=== PATIENT | female | born 1940 | race Caucasian/White ===

== ENCOUNTER 2016-11-26 08:54 | Inpatient (IN) ==
--- NOTE | 2016-11-26 09:46 | Emergency Department Note ---
Carmen Adam Brittany, am scribing for, and in the presence of, Santosh Ricci MD 09:32. Keiry Adam Phillip K, MD, personally performed the services described in this documentation, ascribed by Adrianne Morales in my presence, and it is both accurate and complete 946 . Arrival - Arrival Chief Complaint: Altered Mental Status Stated Complaint: TRANSFER FROM [facility] FOR CHANGE IN MENTAL ST ED Nursing Triage Note: TRANSFER FROM [facility] FOR ALTERED MENTAL STATUS, PT IS DIFFERENT THAN SATURDAY ACCORDING TO SON Mode of Arrival: Stretcher Limitations: No Limitations Source: Family - History of Present Illness HPI Narrative: This is a 76 y/o white female, who presents to the Ed for further evaluation of AMS. Her son states pt was being seen at [facility] 12 days ago and had an EEG which showed seizure activity. At this time, pt's Keppra was increased to TID. Her son states pt had the EEG secondary to the AMS. Her son states he noticed her right arm has started to "twitch" 11/22. No other complaints/pain in the ED at this time. Pt has a PMHx of CHF, CAD, HTN, OR, dyslipidemia, seizures, glioblastoma to the left side of the brain, COPD, GERD, and back/neck problems. Pt has had a cardiac cath x 1 stent, eye surgery, appendectomy, back fusion and spinal surgery. Pt has a family medical Hx of cancer, diabetes, HTN, and stroke. Patient had labs done at [facility] out this morning that were normal. Patient was sent to rehab Saturday and admitted by Dr. Garcia waiting for further instruction to set up radiation therapy. She is not a candidate for surgery. According to the neurosurgeon and family members they only gave her 6 months to live. This could be partial complex seizures that she is having however I have not noted any grand mal seizure activity. Patient will talk in the ED but would not follow commands. Dr. Garcia states that this is a change from her exam on Saturday when she was talking normally. Onset (ago): day(s) (Started 12 days ago) Consistency: constant Severity: moderate Allergies/Adverse Reactions: Allergies Allergy/AdvReac Type Severity Reaction Status Date / Time sumatriptan [From Imitrex] Allergy Unknown/Unable Verified 10/03/15 16:08 to obtain Home Medications: Home Medications Medication Instructions Recorded Confirmed Type Cholecalciferol (Vitamin D3) 1,000 units PO DAILY 03/23/16 11/26/16 History [Vitamin D3] Simvastatin 40 mg PO BEDTIME 03/23/16 11/26/16 History Albuterol/Ipratropium Neb [Duoneb] 1 inhaler INH Q6HR 11/21/16 11/26/16 History Dexamethasone [Dexamethasone Tab] 1 tablet PO Q8HR 11/21/16 11/26/16 History HYDROcodone/ACETAMIN 5-325 [[place] 1 tablet PO Q6HR PRN 11/21/16 11/26/16 History 5-325] Pantoprazole Tab [Protonix Tab] 40 mg PO AC BREAKFAST 11/21/16 11/26/16 History levETIRAcetam [Levetiracetam] 2 tablet PO QAM 11/21/16 11/26/16 History Review of System - Review of System 12 point system: reviewed and no additional remarkable complaints except as stated - Review of System Neurological: Present: other (AMS) Medical,Surgical,& Family Hx - Medical History Cardio: History of: CHF, CAD, Hypertension, OR Neurology: History of: Seizures, Neurologocal Cancer (Glioblastoma grade 4) Endocrine: History of: Dyslipidemia Respiratory: History of: COPD Gastrointestinal: History of: GERD Musculoskeletal: History of: Back/Neck Problems - Surgical History Cardiac Surgeries: Sugical HX of: Cardiac Catheterization (STENT TIMES 1) Thoracic Surgeries: Patient denies;: Organ Transplant, Lobectomy Neurologic Surgeries: Surgical HX of: Neurologic Surgery (back surgery-fusion) HEENT Surgeries: Surgical HX of: Eye Surgery (cartarac surgery) Patient denies: Thyroid Surgery Abdominal Surgeries: Surgical HX of: Abdominal Surgery, Appendectomy Reproductive Surgeries: Patient denies;: Genitourinary Surgery, Gynecologic Surgery Orthopedic Surgeries: Surgical HX of;: Spinal Surgery - Family History Family History: Reports;: Family Cancer, Family Diabetes, Family Hypertension, Family Stroke - Social History Smoking Status: Unknown if ever smoked Frequency of Alcohol Use: None Type of Drug Use: None Exam Vital Signs: Vital Signs Temperature 97.0 F L 11/26/16 08:57 Pulse Rate 68 11/26/16 08:57 Respiratory Rate 18 11/26/16 09:11 Blood Pressure 132/103 11/26/16 08:57 O2 Sat by Pulse Oximetry 97 11/26/16 08:57 - General Exam limited due to: uncooperative (Will not follow commands or answer questions.), other (Patient did talk with other family members while in the ED. She was somewhat confused and did not make a lot of sense.) General appearance: alert, in no apparent distress - Head Head exam: Present: atraumatic - Eye Eye exam: Present: normal appearance, PERRL, EOMI - ENT ENT exam: Present: normal exam - Neck Neck exam: Present: normal inspection - Chest Chest inspection: Present: normal inspection - Respiratory Respiratory exam: Present: normal lung sounds bilaterally. Absent: rales, respiratory distress - Cardiovascular Cardiovascular exam: Present: regular rate, normal rhythm, normal heart sounds - Abdominal Exam Abdominal exam: Present: soft, normal bowel sounds. Absent: tenderness - Extremities Exam Extremities exam: Present: other (Patient will not move either lower extremity. 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 She also has a tremor of her right arm.) - Back Exam Back exam: Present: normal inspection - Neurological Exam Neurological exam: Present: alert, motor sensory deficit (Weak right speeder machine operator as compared to the left. Patient will not move either leg to command. ), other ( Patient will not answer questions.) - Psychiatric Psychiatric exam: Present: flat affect - Skin Skin exam: Present: warm, dry Course Course Narrative: Patient discussed with the hospitalist and will admit for neurology consult and control of her seizures and also a consult with Dr. Hall radiation oncologist. Results - Labs Lab Results: I have reviewed the patients labs (Labs reviewed from [facility] this morning.) - Diagnostic Findings Procedure: CT: report reviewed by me (Head CT: Mild increased localized vasogenic edema in patel left parietal lobe near the conveity in this pateint with reported known glioblastoma. There is no midline shift or hydrocephalus interval left parietal craniotomy. Otherwise unchanged. ) Disposition Clinical Impression: Glioblastoma, Probable partial complex seizures Case discussed with: patient, patient's family Disposition: Still a Patient Condition: Guarded
[2016-11-26] MEDS ORDERED: ACETAMINOPHEN 325 MG TABLET PO PRN (10:24)
--- NOTE | 2016-11-26 10:41 | Hospitalist History & Physical ---
Assessment and Plan (1) Glioblastoma Status: Acute Assessment and plan: Pt. diagnosed with glioblastoma recently. Not a candidate for surgery. Pt. reported to have "seizure like activity" recently. Admit to med surg. Neuro will be consulted to evaluate pt. Repeat CT in ED revealed 'mildly increased localized vasogenic edema in the left parietal lobe near the convexity'. Dr. Hall will also be consulted for possible radiation therapy. Current Visit: Yes (2) Altered mental status Status: Acute Assessment and plan: Secondary to glioblastoma dx. Pt. will be admitted. Neuro and onc consulted. Pt' s family is aware of patient's poor prognosis. Current Visit: Yes (3) COPD (chronic obstructive pulmonary disease) Status: Chronic Assessment and plan: Breathing treatments ordered as needed for patient. Supplemental O2 available. Current Visit: No (4) Debility Status: Chronic Current Visit: No (5) Dyslipidemia Status: Chronic Assessment and plan: Lipid panel in am. Current Visit: No (6) History of coronary artery disease Status: Chronic Current Visit: No History of Present Illness Chief complaint: altered mental status History of present illness: Ms. Yusuf is a 76 year old white female with a history of recently diagnosed glioblastoma and seizures, CHF, CAD, hypertension, PA, dyslipidemia, COPD and GERD who presents to the ED for further evaluation of altered mental status. Patient is a transfer from [facility]. Patient's son and are present at bedside. Patient was recently diagnosed with a glioblastoma to the left side of the brain. Patient was seen at [facility] in [place] where the glioblastoma was found to be nonoperable. Patient's life expectancy is about 6 months. Patient was just recently sent to rehab on Saturday in admitted by Dr. Garcia. Patient is awaiting instruction for radiation therapy set up. Her son states that she recently had an EEG done 12 days ago at [facility] which showed seizure activity. On examination in the ED patient would not follow commands or answer questions. Pt. was noted to have twitching to right arm. She only says the word "no" and mumbles. She was transferred because Dr. Garcia states that this was a change from her examination on Saturday. Pt. will be admitted for further evaluation. Neuro and onc will be consulted. Home Medications Medication Instructions Recorded Confirmed Type Cholecalciferol (Vitamin D3) 1,000 units PO DAILY 03/23/16 11/26/16 History [Vitamin D3] Simvastatin 40 mg PO BEDTIME 03/23/16 11/26/16 History Albuterol/Ipratropium Neb [Duoneb] 1 inhaler INH Q6HR 11/21/16 11/26/16 History Dexamethasone [Dexamethasone Tab] 1 tablet PO Q8HR 11/21/16 11/26/16 History HYDROcodone/ACETAMIN 5-325 [[place] 1 tablet PO Q6HR PRN 11/21/16 11/26/16 History 5-325] Pantoprazole Tab [Protonix Tab] 40 mg PO AC BREAKFAST 11/21/16 11/26/16 History levETIRAcetam [Levetiracetam] 1,500 tablet PO DAILY 11/21/16 11/26/16 History Allergies Allergy/AdvReac Type Severity Reaction Status Date / Time sumatriptan [From Imitrex] Allergy Unknown/Unable Verified 10/03/15 16:08 to obtain Medical,Surgical,& Family Hx - Medical History Cardio: History of: CHF, CAD, Hypertension, PA Neurology: History of: Seizures, Neurologocal Cancer (Glioblastoma grade 4) Endocrine: History of: Dyslipidemia Respiratory: History of: COPD Gastrointestinal: History of: GERD Musculoskeletal: History of: Back/Neck Problems - Surgical History Cardiac Surgeries: Sugical HX of: Cardiac Catheterization (STENT TIMES 1) Thoracic Surgeries: Patient denies;: Organ Transplant, Lobectomy Neurologic Surgeries: Surgical HX of: Neurologic Surgery (back surgery-fusion) HEENT Surgeries: Surgical HX of: Eye Surgery (cartarac surgery) Patient denies: Thyroid Surgery Abdominal Surgeries: Surgical HX of: Abdominal Surgery, Appendectomy Reproductive Surgeries: Patient denies;: Genitourinary Surgery, Gynecologic Surgery Orthopedic Surgeries: Surgical HX of;: Spinal Surgery - Family History Family History: Reports;: Family Cancer, Family Diabetes, Family Hypertension, Family Stroke - Social History Smoking Status: Unknown if ever smoked Frequency of Alcohol Use: None Type of Drug Use: None ROS unobtainable: due to mental status Exam - Constitutional Vitals: Period Temp Pulse Resp BP Sys/Forrester Pulse Ox Last 24 Hr 97.0 F-97.0 F 68-68 18-18 132-132/103-103 97 General appearance: normal weight, no acute distress - Head Head exam: Present: normal inspection, normocephalic - Eye Eye exam: Present: EOMI. Absent: scleral icterus Pupils: Present: LENNY. Absent: fixed - Neck Neck exam: Present: normal inspection. Absent: thyromegaly - Respiratory Respiratory exam: Present: clear to auscultation bilaterally. Absent: wheezes - Cardiovascular Cardiovascular exam: Present: regular rate and rhythm - GI/Abdominal GI/Abdominal exam: Present: normal bowel sounds, soft. Absent: tenderness - Extremities Exam Extremities exam: Present: normal capillary refill. Absent: full ROM, edema - Neurological Exam Neurological exam: Present: alert. Absent: oriented X3 - Skin Skin exam: Present: normal color, warm, dry Results - Labs Lab Results: I have reviewed the past 24 hour labs Labs: Labs were performed this morning at [facility]. WBC 12.1 RBC 4.58 Hgb 13.4 HCT 41.5 and a 138 K4.7 chloride 102 CO2 31 BUN 33 creatinine 0.70 glucose 133
--- NOTE | 2016-11-26 10:43 | CT Report ---
History: Altered mental status. History of glioblastoma Date: 11/26/2016 Study: CT head without contrast Comparison exam: November 02, [address] sections were obtained through the head without IV contrast. This CT exam was performed using one or more the following dose reduction techniques: Automated exposure control, adjustment of the MA and/or KV according to patient size, or use of iterative reconstruction technique. Since the previous study, the patient has undergone left parietal craniotomy. There is mildly increased localized vasogenic edema deep to the craniotomy site in this patient with reported known glioblastoma. The ventricles are midline in position without evidence of hydrocephalus. There are some scattered areas of chronic lacunar infarction in the lenticular nuclei and anterior internal capsule regions bilaterally. There is no new area of mass effect. There is no parenchymal hemorrhage. There is no extra-axial hematoma. The paranasal sinuses and mastoid air cells are generally clear. Impression: Mildly increased localized vasogenic edema in the left parietal lobe near the convexity in this patient with reported known glioblastoma. There is no midline shift or hydrocephalus. Interval left parietal craniotomy. Otherwise unchanged PROCEDURE INTERPRETED AT [facility] DEPARTMENT OF RADIOLOGY Final Report Signed by: Dr. Mindy Walker
[2016-11-26] MEDS: DEXAMETHASONE 4 MG TABLET PO SCH ×2 (15:12→21:17)
--- NOTE | 2016-11-26 17:15 | Neurology Consult Note ---
History of Present Illness History of present illness: Ms. Yusuf is a 76 year old right-handed white lady with a history of CHF, CAD, hypertension, HI, dyslipidemia, COPD, GERD who presents to the ED for further evaluation of altered mental status. She was first found to have change in mental status on November 03 and she was taken to [facility]. Imaging study revealed possible brain cancer. Neurosurgery consulted and she underwent biopsy which confirmed glioblastoma multiforme. Dr. Shivani Tejada was also consulted who recommended radiation treatment. Patient was also started on corticosteroids. Patient was brought into the hospital by her son due to progressively worsening mental status including increasing confusion, disorientation and unable to recognize family members. She was actually at the [facility] at the swing bed which she started having seizures affecting right side of the body. She did have some seizures back in [place] as well and she was started on high-dose of Keppra. Apparently it looks like she is a still having seizures. She is constantly having mild jerking motion of the right upper extremity. She is confused and disoriented. Her speech is affected and she is constantly saying yes yes and yes Home Medications Medication Instructions Recorded Confirmed Type Cholecalciferol (Vitamin D3) 1,000 units PO DAILY 03/23/16 11/26/16 History [Vitamin D3] Simvastatin 40 mg PO BEDTIME 03/23/16 11/26/16 History Albuterol/Ipratropium Neb [Duoneb] 1 inhaler INH Q6HR 11/21/16 11/26/16 History Dexamethasone [Dexamethasone Tab] 1 tablet PO Q8HR 11/21/16 11/26/16 History HYDROcodone/ACETAMIN 5-325 [[place] 1 tablet PO Q6HR PRN 11/21/16 11/26/16 History 5-325] Pantoprazole Tab [Protonix Tab] 40 mg PO AC BREAKFAST 11/21/16 11/26/16 History levETIRAcetam [Levetiracetam] 1,500 tablet PO DAILY 11/21/16 11/26/16 History Allergies Allergy/AdvReac Type Severity Reaction Status Date / Time sumatriptan [From Imitrex] Allergy Unknown/Unable Verified 10/03/15 16:08 to obtain ROS unobtainable: due to mental status Medical,Surgical,& Family Hx - Medical History Cardio: History of: CHF, CAD, Hypertension, [place] Neurology: History of: Seizures, Neurologocal Cancer (Glioblastoma grade 4) Endocrine: History of: Dyslipidemia Respiratory: History of: COPD Gastrointestinal: History of: GERD Musculoskeletal: History of: Back/Neck Problems - Surgical History Cardiac Surgeries: Sugical HX of: Cardiac Catheterization (STENT TIMES 1) Thoracic Surgeries: Patient denies;: Organ Transplant, Lobectomy Neurologic Surgeries: Surgical HX of: Neurologic Surgery (back surgery-fusion) HEENT Surgeries: Surgical HX of: Eye Surgery (cartarac surgery) Patient denies: Thyroid Surgery Abdominal Surgeries: Surgical HX of: Abdominal Surgery, Appendectomy Reproductive Surgeries: Patient denies;: Genitourinary Surgery, Gynecologic Surgery Orthopedic Surgeries: Surgical HX of;: Spinal Surgery - Family History Family History: Reports;: Family Cancer, Family Diabetes, Family Hypertension, Family Stroke - Social History Smoking Status: Unknown if ever smoked Frequency of Alcohol Use: None Type of Drug Use: None Exam - Constitutional Vitals: Period Temp Pulse Resp BP Sys/Forrester Pulse Ox Last 24 Hr 97.0 F-98.0 F 64-69 18-20 118-132/67-103 95-97 Exam: GENERAL: Patient is in no acute distress. NECK: Neck is supple. There is no JVD. No carotid bruits present. No thyroid masses. CVS: First and second heart sounds are normal. There is no S3 present. Regular rate and rhythm. RESPIRATORY: Lungs are clear to auscultation without any rales or rhonchi. ABDOMEN: Soft and non-tender. Bowel sounds are present. There is no hepatosplenomegaly. EXT: There is no palpable edema. Peripheral pulses are present. Skin: No rashes Central Nervous system: General: Alert, awake Speech: Non-Fluent Comprehension: Impaired Facial expressions: Normal Cranial Nerves: Pupils are equally reactive to light. Doll's head eye movements are positive. She has right homonymous hemianopsia Motor: Bulk and Tone is normal. She has constant slight jerking of the right upper extremity Strength: Dense right hemiplegia Sensory: Cannot be assessed Reflexes: 1+ and symmetrical Cerebellar function: Cannot be assessed Toes: Equivocal Gait: Cannot be assessed Assessment and Plan (1) Glioblastoma Status: Acute Assessment and plan: Continue steroids. Agree with radiation oncology consultation. Discussed at length with the patient's family regarding prognosis Current Visit: Yes (2) Seizures Status: Acute Assessment and plan: Change Keppra to 750 mg IV every 8 Add Vimpat 100 mg IV every 12 EEG Thank you for the consult Current Visit: Yes
[2016-11-26] MEDS: SIMVASTATIN 40 MG TABLET PO SCH (21:17)
[2016-11-27 05:45] LABS: Basophils % 0.2 % (0.0-0.8); Hematocrit 42.9 VOL% (35.7-47.0); Hemoglobin 14.3 GM/DL (12.0-16.0); Immature Granulocytes % 2.5 %; Immature Granulocytes Absolute 0.32 #; Lymphocytes # 0.9 10*3/uL (1.4-4.0); Lymphocytes % 6.8 % (21.3-54.2); Mean Corpuscular HGB Conc 33.3 GM/DL (32-36); Mean Corpuscular Hemoglobin 30 PG (27-34); Mean Corpuscular Volume 90.5 FL (87-102); Mean Platelet Volume 9.5 FL (9.6-12.0); Monocytes # 0.8 10*3/uL (0.11-0.8); Monocytes % 6.6 % (1.7-12.7); Neutrophils # 10.7 10*3/uL (1.4-7.4); Neutrophils % 83.9 % (38.7-73.9); Platelet Count 137 T/CUMM (130-400); Red Blood Count 4.74 MC/CUMM (3.8-5.5); Red Cell Distribution Width 13.5 % (9.3-17.3); White Blood Count 12.7 T/CUMM (4-12)
[2016-11-27 06:31] LABS: Albumin 2.9 G/DL (3.4-5.0); Calcium 8.5 MG/DL (8.5-10.1); Magnesium 2.7 MG/DL (1.8-2.4); Osmolality,Calculated 284.5 MOS/KG (273-304); Potassium 5.1 MMOL/L (3.5-5.1); Risk Ratio 2.07; Thyroid Stimulating Hormone 0.496 uIU/ml (0.358-3.74); Total Protein 5.7 G/DL (6.4-8.3); VLDL CHOLESTEROL 21.8 MG/DL
[2016-11-27] MEDS: CHOLECALCIFEROL 1,000 UNIT TABLET PO SCH (08:38)
[2016-11-27] MEDS: DEXAMETHASONE 4 MG TABLET PO SCH ×2 (08:38→13:00)
[2016-11-27] MEDS ORDERED: levETIRAcetam 500 MG TABLET PO SCH (09:00)
[2016-11-27] MEDS ORDERED: PANTOPRAZOLE 40 MG TABLET PO SCH (09:00)
--- NOTE | 2016-11-27 10:05 | Hospitalist Progress Note ---
Hospitalist: Subjective Interval history: Pt with slurred speech able to say a few words. She is actively twitching on the right side. No fever. Currently undergoing an EEG. Denies pain. When asked with her family present twice, pt has audibly and clearly stated she does not want CPR, cardiac defibrillation or intubation if her heart stopped and she was not able to breath on her own. Nurse present in room and witnessed conversation. Exam - Constitutional Vitals: Period Temp Pulse Resp BP Sys/Forrester Pulse Ox Last 24 Hr 95.9 F-98.0 F 60-90 16-20 113-142/43-78 94-96 Exam: GEN: actively jerking on right upper extremity. Awake, alert, mild dysarthria HEENT: alopecia with bandage in place. dry oral mucosa NECK: Supple no LAD or thyromegaly CV: RRR no M LUNGS: CTAB nonlabored ABD: Soft, NT, ND, +BS EXT: Warm, no c/c/e NEURO: right hemiplegia with active jerking on right arm, sensory exam grossly intact. 3/5 strength of LLE; 1/5 RLE; 4/5 RUE. No clonus Results - Labs CBC & BMP: 11/27/16 05:29 11/27/16 05:29 - Impressions (1) Glioblastoma Status: Chronic Assessment and plan: - Pt. diagnosed with glioblastoma recently. Not a candidate for surgery. Currently with seizure like activity. - Neurology following and appreciate input - Radiation oncology/ Dr. Hall has been consulted for possible palliative radiation therapy - Son discussed with Dr. Hall and pt will go this afternoon to see if she can tolerate radiation therapy. - Repeat CT in ED revealed 'mildly increased localized vasogenic edema in the left parietal lobe near the convexity'. - On Decadron 4mg po TID for cerebral edema. Will change to IV for now and will need to add PPI to prevent gastritis Current Visit: Yes (2) Acute metabolic encephalopathy Status: Acute Assessment and plan: - Secondary to possible breakthrough seizures. On IV Keppra and Vimpat has been added - Aspiration and seizure precautions - Neurology and Radiation Oncology consulted. Pt's family is aware of patient's poor prognosis. Pt and family have decided to make her a DNR. Current Visit: Yes (3) COPD (chronic obstructive pulmonary disease) Status: Chronic Assessment and plan: - Bronchodilators/treatments ordered as needed for patient. Supplemental O2 available. Current Visit: No (4) Debility Status: Chronic Current Visit: No (5) Dyslipidemia Status: Chronic Assessment and plan: - Lipid panel reviewed Current Visit: No (6) History of coronary artery disease Status: Chronic Current Visit: No (7) Dysarthria - consult speech therapy (8) Debility -PT/OT consult Dispo: Home hospice vs. inpatient hospice pending screen for possible radiation therapy once seizures better controlled. Pt is now a DNR. See orders
--- NOTE | 2016-11-27 13:43 | Radiation Oncology Letter ---
Radiation Oncology - Letter This is Amaya Hall MD dictating a consult on Josephine Yusuf at the request of Dr. Guzman: Josephine Townsend is a 76-year-old white female for [facility], she presented with altered mental status and and right-sided weakness. A CT of the head done without contrast in the ER showed a localized vasogenic edema in the left parietal lobe suggesting a potential underlying mass she was transferred to [facility] and an MRI was performed which showed a 4.4 x 2.3 x 4.4 cm mass with vasogenic edema within the left parietal lobe there was also a satellite lesion extending into the region of the left frontal lobe. Patient underwent a craniotomy and biopsy of the left parietal mass lesion. Pathology revealed a grade 4 glioma consistent with glioblastoma multiforme. The patient was not considered operable and was referred to us for radiotherapy to try to palliate her rapidly growing brain tumor. The patient came to the radiotherapy department we talked with her and offered to perform a radiation simulation to begin the treatment planning process. The patient was very distinctly negative in responding to this suggestion. Because I was concerned about her ability to make a reasonable decision I asked her several questions requiring a yes answer, including, did she understand me in which she gave a distinctly affirmative answers. When I asked her again if she wished for me to begin to try her treatment planning she said very loudly and very affirmatively that the answer was NO. Her son was present at the time of our discussions and heard her refusal. In view of her situation and the low likelihood of anything benefiting her, I think that that represents a reasonable decision and would suggest she be managed with hospice care only.
[2016-11-27] MEDS: LACOSAMIDE INJ 100 MG in SODIUM CHLORIDE 0.9% 50 ML IV SCH ×2 (13:47→22:11)
[2016-11-27] MEDS ORDERED: LORazepam 2 MG/1 ML VIAL IV ONE (14:41)
--- NOTE | 2016-11-27 14:56 | Neurology Progress Note ---
Neurology - PN : Subjective Interval history: Patient continued to have seizures in the right upper activity constantly suggestive of simple partial status. She is on Vimpat and Keppra. We gave her a small dose of Ativan 1 mg IV which he stopped the seizure and she is asleep. Patient is DNR. Patient is not a good candidate for radiation treatments. Exam (Progress Note) - Constitutional Vitals: Period Temp Pulse Resp BP Sys/Forrester Pulse Ox Last 24 Hr 95.9 F-98.0 F 57-90 16-20 113-142/43-78 94-98 Exam: GENERAL: Patient is in no acute distress. NECK: Neck is supple. There is no JVD. No carotid bruits present. No thyroid masses. CVS: First and second heart sounds are normal. There is no S3 present. Regular rate and rhythm. RESPIRATORY: Lungs are clear to auscultation without any rales or rhonchi. ABDOMEN: Soft and non-tender. Bowel sounds are present. There is no hepatosplenomegaly. EXT: There is no palpable edema. Peripheral pulses are present. Skin: No rashes Central Nervous system: General: Asleep Speech: Non-Fluent Comprehension: Asleep Facial expressions: Normal Cranial Nerves: Pupils are equally reactive to light. Doll's head eye movements are positive. She has right homonymous hemianopsia Motor: Bulk and Tone is normal. She has constant slight jerking of the right upper extremity Strength: Dense right hemiplegia Sensory: Cannot be assessed Reflexes: 1+ and symmetrical Cerebellar function: Cannot be assessed Toes: Equivocal Gait: Cannot be assessed Results - Labs CBC & BMP: 11/27/16 05:29 11/27/16 05:29 Assessment and Plan (1) Glioblastoma Status: Acute Assessment and plan: Continue steroids. Discussed at length with the patient's family regarding prognosis Current Visit: Yes (2) Seizures Status: Acute Assessment and plan: Continue Keppra and Vimpat at the same dose Add Dilantin 1 g IV followed by 100 mg IV every 8 Patient will go home with hospice Current Visit: Yes
--- NOTE | 2016-11-27 15:13 | Case Mgmt Physician Query Form ---
TB Signs and Symptoms Screening ([place]) INSTRUCTIONS: To be completed annually on residents/staff with a significant Tuberculin Skin Test (TST) upon admission/hire or a prior significant TST. To be completed on all staff at hire. Please respond to each listed symptom with an (X) in either the "YES" or "NO" box. Do you currently have any of the following symptoms: YES NO ( ) ( x) A cough If yes, is it: ( ) Productive ( ) Non- productive ( ) (x ) Hemoptysis (spitting up blood) ( ) (x ) Chest pains ( ) (x ) Weight Loss ( ) (x ) Fever ( ) (x ) Night Sweats (x ) ( ) Weakness ( ) ( x) Loss of Appetite ( ) (x ) Difficulty Breathing If you answered YES" to any of the above questions, how long have symptoms been present? Comments: at least 3 weeks If you have any questions, please contact me. Thank you, Randi LAWSON P: [phone] F: [phone] E: [email or web address]
[2016-11-27] MEDS: DEXAMETHASONE 4 MG/1 ML VIAL IV SCH (15:45)
[2016-11-27] MEDS ORDERED: PHENYTOIN INJ 1,000 MG in SODIUM CHLORIDE 0.9% 100 ML IV ONE (16:00)
--- NOTE | 2016-11-27 19:16 | XRay Report ---
XR chest 1V portable Indication: Shortness of breath. Chest one view: Comparison 11/03/2016. Patient has been extubated and NG tube removed. Heart size remains normal. Mediastinal contours unremarkable. No discrete infiltrates are seen. Impression: No acute cardiopulmonary disease. PROCEDURE INTERPRETED AT [facility] DEPARTMENT OF RADIOLOGY Final Report Signed by: Jalil Patel M.D.
[2016-11-27] MEDS ORDERED: TUBERCULIN SKIN TEST 0.1 ML SYRINGE INTRADERM ONE (20:00)
--- NOTE | 2016-11-27 20:17 | Electroencephalogram ---
DATE OF STUDY: HISTORY: A [id number]-old patient with history of brain tumor and continued right shoulder jerking . Photic stimulation and hypoventilation are not performed. DESCRIPTION OF RECORD: The background is somewhat disorganized consisted of 6 to 7 Hz, moderate ampl itude bilaterally symmetrical rhythm. This record is notable for continuous intermittent left fronto central and frontotemporal sharp waves. There is slight secondary generalization into the right rhiannon sphere. This sharp and wave discharges occurring every 2 to 3 seconds. Clinically, the patient is s ort as having right shoulder in pain and jerking constantly. Heart rate is 60 beats per minute. IMPRESSION: ABNORMAL ELECTROENCEPHALOGRAM DUE TO 1. GENERALIZED SLOWING 2. LEFT HEMISPHERIC PLEDS (PERIODIC LATERALIZING EPILEPTIFORM DISCHARGES). CLINICAL CORRELATION: This record is reported for moderate to severe encephalopathy as well as parti al mechanism for epilepsy (simple partial seizures). Clinical correlation is suggested.
[2016-11-27] MEDS: SIMVASTATIN 40 MG TABLET PO SCH (21:17)
[2016-11-28] MEDS: DEXAMETHASONE 4 MG/1 ML VIAL IV SCH ×2 (03:15→10:52)
[2016-11-28] MEDS: PHENYTOIN 100 MG/2 ML VIAL IV SCH ×2 (03:16→10:52)
[2016-11-28] MEDS: LACOSAMIDE INJ 100 MG in SODIUM CHLORIDE 0.9% 50 ML IV SCH ×2 (03:18→10:52)
[2016-11-28] MEDS ORDERED: PANTOPRAZOLE 40 MG VIAL IV SCH (09:00)
[2016-11-28 09:31] LABS: Albumin 3.3 G/DL (3.4-5.0); Bilirubin,Total 1.4 MG/DL (0.2-1.0); Calcium 8.8 MG/DL (8.5-10.1); Total Protein 6.2 G/DL (6.4-8.3)
[2016-11-28 09:32] LABS: Osmolality,Calculated 285.4 MOS/KG (273-304); Potassium 5.1 MMOL/L (3.5-5.1)
[2016-11-28 09:43] LABS: Basophils % 0.2 % (0.0-0.8); Eosinophils % 0.3 % (0.00-10.9); Hematocrit 47.7 VOL% (35.7-47.0); Mean Corpuscular Volume 89.2 FL (87-102); NRBC # 0.08 10*3/uL; Red Blood Count 5.35 MC/CUMM (3.8-5.5)
[2016-11-28 09:47] LABS: Immature Granulocytes % 1.9 %; Immature Granulocytes Absolute 0.29 #; Lymphocytes % 6.1 % (21.3-54.2); Mean Corpuscular HGB Conc 34.6 GM/DL (32-36); Mean Corpuscular Hemoglobin 31 PG (27-34); Mean Platelet Volume 9.3 FL (9.6-12.0); Monocytes # 1.4 10*3/uL (0.11-0.8); Neutrophils # 12.9 10*3/uL (1.4-7.4); Neutrophils % 82.5 % (38.7-73.9); Platelet Count 153 T/CUMM (130-400); Red Cell Distribution Width 13.7 % (9.3-17.3); White Blood Count 15.6 T/CUMM (4-12)
[2016-11-28 09:54] LABS: Hemoglobin 16.5 GM/DL (12.0-16.0)
--- NOTE | 2016-11-28 11:56 | Hospitalist Progress Note ---
Hospitalist: Subjective Interval history: Pt's right sided twitching has stopped. No fever. Denies any pain. She slept well last night. No nausea or vomiting. She was awaiting speech evaluation at the time of my exam. Since my exam, speech has seen her and has recommended a pureed diet. Exam - Constitutional Vitals: Period Temp Pulse Resp BP Sys/Forrester Pulse Ox Last 24 Hr 95.2 F-97.9 F 57-87 16-20 114-148/66-98 92-100 Exam: GEN: resting comfortably. No jerking on right upper extremity. Awake, alert, mild dysarthria. Slightly slower to respond to questions today but she responds appropriately. HEENT: alopecia with bandage in place. dry oral mucosa NECK: Supple no LAD or thyromegaly CV: RRR no M LUNGS: CTAB nonlabored ABD: Soft, NT, ND, +BS EXT: Warm, no c/c/e NEURO: right hemiplegia, sensory exam grossly intact. 3/5 strength of LLE; 1/5 RLE; 4/5 LUE. No clonus Results - Labs CBC & BMP: 11/28/16 09:36 11/28/16 07:45 - Impressions (1) Glioblastoma Status: Chronic Assessment and plan: - Repeat CT in ED revealed 'mildly increased localized vasogenic edema in the left parietal lobe near the convexity'. - Pt. diagnosed with glioblastoma recently. Not a candidate for surgery. - Neurology following and appreciate input - Radiation oncology/ Dr. Hall has been consulted for possible palliative radiation therapy but pt declined. - On Decadron 4mg po TID for cerebral edema. - Cont PPI to prevent gastritis Current Visit: Yes (2) Acute metabolic encephalopathy- due to seizures due to mass; it was improved but now likely due to medication to prevent stop/ seizures Status: Acute Assessment and plan: - Pt lost IV access. D/W son and does not want PICC or central line. Change Keppra, Vimpat, and dilantin to po. May need to check a dilantin level if she remains slow... neurology following - Cont Aspiration and seizure precautions - Neurology and Radiation Oncology consulted. Rad- Onc signed off. Pt's family is aware of patient's poor prognosis. - Pt is DNR. Current Visit: Yes (3) COPD (chronic obstructive pulmonary disease) Status: Chronic Assessment and plan: - Bronchodilators/treatments ordered as needed for patient. Supplemental O2 available. Current Visit: No (4) Debility Status: Chronic Current Visit: No - PT/OT (5) Dyslipidemia Status: Chronic Assessment and plan: - Lipid panel reviewed. On statin Current Visit: No (6) History of coronary artery disease Status: Chronic Current Visit: No (7) Dysarthria - speech therapy has recommended a pureed diet. Will start (8) Seizure disorder - Cont Keppra, Vimpat, and Dilantin. Dispo: Plans for dc to [facility] with hospice Thursday 11/30 once son is able to return from [place] and assist with transportation there. Monitor for seizures and oral intake for now. D/W nurse and pt and all questions answered.
[2016-11-28] MEDS: PHENYTOIN 100 MG/4 ML UDCUP PO SCH ×2 (12:41→21:12)
[2016-11-28] MEDS: levETIRAcetam LIQUID 100 MG/ML 30 ML/BOTTLE PO SCH ×2 (12:41→21:13)
[2016-11-28] MEDS: CHOLECALCIFEROL 1,000 UNIT TABLET PO SCH (12:41)
[2016-11-28] MEDS: DEXAMETHASONE 4 MG TABLET PO SCH ×2 (12:41→21:13)
[2016-11-28] MEDS ORDERED: LACOSAMIDE 50 MG TABLET PO SCH (13:00)
--- NOTE | 2016-11-28 15:33 | Neurology Progress Note ---
Neurology - PN : Subjective Interval history: Patient seems to be doing better. No more seizures reported. Alert and awake. Following very simple commands at times. Exam (Progress Note) - Constitutional Vitals: Period Temp Pulse Resp BP Sys/Forrester Pulse Ox Last 24 Hr 95.2 F-97.9 F 62-87 16-20 114-148/66-98 92-100 Exam: GENERAL: Patient is in no acute distress. NECK: Neck is supple. There is no JVD. No carotid bruits present. No thyroid masses. CVS: First and second heart sounds are normal. There is no S3 present. Regular rate and rhythm. RESPIRATORY: Lungs are clear to auscultation without any rales or rhonchi. ABDOMEN: Soft and non-tender. Bowel sounds are present. There is no hepatosplenomegaly. EXT: There is no palpable edema. Peripheral pulses are present. Skin: No rashes Central Nervous system: General: Asleep Speech: Non-Fluent Comprehension: Asleep Facial expressions: Normal Cranial Nerves: Pupils are equally reactive to light. Doll's head eye movements are positive. She has right homonymous hemianopsia Motor: Bulk and Tone is normal. No more jerking seen. Strength: Dense right hemiplegia Sensory: Cannot be assessed Reflexes: 1+ and symmetrical Cerebellar function: Cannot be assessed Toes: Equivocal Gait: Cannot be assessed Results - Labs CBC & BMP: 11/28/16 09:36 11/28/16 07:45 Assessment and Plan (1) Glioblastoma Status: Acute Assessment and plan: Continue steroids. Discussed at length with the patient's family regarding prognosis Current Visit: Yes (2) Seizures Status: Acute Assessment and plan: Continue Dilantin and Keppra Stop Vimpat Check Dilantin level Current Visit: Yes
[2016-11-28] MEDS: LANSOPRAZOLE ODT 30 MG TABLET PO SCH (21:13)
[2016-11-28] MEDS: SIMVASTATIN 40 MG TABLET PO SCH (21:13)
[2016-11-28] MEDS: DESITIN 4OZ/NYSTATIN 15 GRAM MIXTURE PASTE TOP SCH (21:13)
--- NOTE | 2016-11-29 07:28 | Hospitalist Progress Note ---
Hospitalist: Subjective Interval history: Patient eating approximately 25%. Today she is only staring and she tracks and follows a few commands but she is not speaking. No fever. Exam - Constitutional Vitals: Period Temp Pulse Resp BP Sys/Forrester Pulse Ox Last 24 Hr 96.1 F-97.0 F 64-89 16-99 109-133/66-87 92-100 Exam: GEN: resting comfortably. No jerking on right upper extremity. Awake, alert. Nonverbal at this carmita. Slightly slower to respond to questions today but she responds appropriately. HEENT: alopecia with bandage in place. dry oral mucosa NECK: Supple no LAD or thyromegaly CV: RRR no M LUNGS: CTAB nonlabored ABD: Soft, NT, ND, +BS EXT: Warm, no c/c/e NEURO: right hemiplegia, sensory exam grossly intact. 3/5 strength of LLE; 1/5 RLE; 4/5 LUE. No clonus Results - Labs CBC & BMP: 11/28/16 09:36 11/28/16 07:45 - Impressions (1) Glioblastoma Status: Chronic Assessment and plan: - Repeat CT in ED revealed 'mildly increased localized vasogenic edema in the left parietal lobe near the convexity'. - Pt. diagnosed with glioblastoma recently. Not a candidate for surgery. - Neurology following and appreciate input - Radiation oncology/ Dr. Hall has been consulted for possible palliative radiation therapy but pt declined. - On Decadron 4mg po TID for cerebral edema. - Cont PPI to prevent gastritis Current Visit: Yes (2) Acute metabolic encephalopathy- due to seizures due to mass Status: Acute Assessment and plan: - Pt lost IV access. D/W son and does not want PICC or central line. - Cont Keppra and dilantin. Dilantin level pending. - Neurology following - Cont Aspiration and seizure precautions - Neurology and Radiation Oncology consulted. Rad- Onc signed off. Pt's family is aware of patient's poor prognosis. - Pt is DNR. Current Visit: Yes (3) COPD (chronic obstructive pulmonary disease) Status: Chronic Assessment and plan: - Bronchodilators/treatments ordered as needed for patient. Supplemental O2 available. Current Visit: No (4) Debility Status: Chronic Current Visit: No - PT/OT (5) Dyslipidemia Status: Chronic Assessment and plan: - Lipid panel reviewed. On statin Current Visit: No (6) History of coronary artery disease Status: Chronic Current Visit: No (7) Dysarthria - speech therapy has recommended a pureed diet. Cont. (8) Seizure disorder - Cont Greg and Rob. Dispo: Plans for dc to [facility] with hospice Thursday 11/30 once son is able to return from [place] and assist with transportation there. Monitor for seizures and oral intake for now. D/W nurse, friend of the family at the bedside and pt and all questions answered.
[2016-11-29] MEDS: CHOLECALCIFEROL 1,000 UNIT TABLET PO SCH (08:51)
[2016-11-29] MEDS: DESITIN 4OZ/NYSTATIN 15 GRAM MIXTURE PASTE TOP SCH ×2 (08:51→20:55)
[2016-11-29] MEDS: LANSOPRAZOLE ODT 30 MG TABLET PO SCH ×2 (08:51→21:05)
[2016-11-29] MEDS: PHENYTOIN 100 MG/4 ML UDCUP PO SCH ×3 (08:51→20:55)
[2016-11-29] MEDS: DEXAMETHASONE 4 MG TABLET PO SCH ×3 (08:51→20:55)
[2016-11-29] MEDS: levETIRAcetam LIQUID 100 MG/ML 30 ML/BOTTLE PO SCH ×2 (08:52→20:55)
--- NOTE | 2016-11-29 09:40 | Neurology Progress Note ---
Neurology - PN : Subjective Interval history: Patient seems to be doing better. No seizures reported. Awake and alert. Follow commands occasionally. Dilantin level is 9.7 Exam (Progress Note) - Constitutional Vitals: Period Temp Pulse Resp BP Sys/Forrester Pulse Ox Last 24 Hr 96.1 F-97.7 F 66-89 16-99 109-127/66-87 92-100 Exam: GENERAL: Patient is in no acute distress. NECK: Neck is supple. There is no JVD. No carotid bruits present. No thyroid masses. CVS: First and second heart sounds are normal. There is no S3 present. Regular rate and rhythm. RESPIRATORY: Lungs are clear to auscultation without any rales or rhonchi. ABDOMEN: Soft and non-tender. Bowel sounds are present. There is no hepatosplenomegaly. EXT: There is no palpable edema. Peripheral pulses are present. Skin: No rashes Central Nervous system: General: Asleep Speech: Non-Fluent Comprehension: Asleep Facial expressions: Normal Cranial Nerves: Pupils are equally reactive to light. Doll's head eye movements are positive. She has right homonymous hemianopsia Motor: Bulk and Tone is normal. No more jerking seen. Strength: Dense right hemiplegia Sensory: Cannot be assessed Reflexes: 1+ and symmetrical Cerebellar function: Cannot be assessed Toes: Equivocal Gait: Cannot be assessed Results - Labs CBC & BMP: 11/28/16 09:36 11/28/16 07:45 Assessment and Plan (1) Glioblastoma Status: Acute Assessment and plan: Continue steroids. Discussed at length with the patient's family regarding prognosis Patient will be discharged to assisted with hospice tomorrow Current Visit: Yes (2) Seizures Status: Acute Assessment and plan: Continue Dilantin and Keppra Current Visit: Yes
[2016-11-29] MEDS: SIMVASTATIN 40 MG TABLET PO SCH (21:04)
--- NOTE | 2016-11-30 07:56 | Discharge Summary ---
Hospital Course - Hospital Course Hospital Course: Patient is a 76-year-old female recently diagnosed with glioblastoma of the brain not amendable to resection who presented to the hospital with intractable jerking of the right arm. She was made n.p.o. and neurology was consulted to assist with her management. EEG was noted to show focal seizure activity. She was started on IV Decadron, IV Keppra, IV Vimpat, and IV Dilantin. Patient still continued to see so Ativan 1 mg IV x 1 was given with good results. Patient had some mild slowing after receiving the Ativan which improved over time. Radiation oncology was also consulted to see if patient would be a candidate for radiation therapy. After meeting with the family and the patient, patient declined radiation therapy. Speech, physical, and Occupational Therapy were consulted to assist with her management. Speech therapy recommended a pured diet. Electrolytes were replaced as needed. TSH was within normal limits. based on the above and noting that the patient's case was terminal, family decided on hospice services. Once arranged, patient was discharged to care home with hospice services for ongoing care. - Time spent with patient Time with patient DS: Greater than 30 minutes (46 minutes) Diagnosis - Discharge Diagnosis (1) Acute encephalopathy Status: Resolved (2) Glioblastoma Status: Chronic (3) Seizures Status: Acute (4) COPD (chronic obstructive pulmonary disease) Status: Chronic (5) Debility Status: Chronic (6) Dyslipidemia Status: Chronic (7) History of coronary artery disease Status: Chronic Discharge Plan - Discharge Data Disposition: Hospice - Medical Facility Condition at Discharge: Stable Discharge Diet: other (pureed diet as tolerated) Activity: resume usual activities as tolerated Contact your physician if you experience:: fever over 101, Difficulty voiding, Redness or swelling, Nausea/Vomiting, Shortness of breath, Bleeding, pain uncontrolled by pain medications - Discharge Medications New Lansoprazole Odt Tab [Prevacid Solutab] 30 mg PO BID tablet Phenytoin Liquid [Dilantin Susp] 100 mg PO TID levETIRAcetam LIQUID [Keppra Liquid] 1,000 mg PO BID ml Acetaminophen Tab [Tylenol Tab] 650 mg PO Q4H PRN tablet PRN Reason: Fever, Headache, Mild Pain Continue Simvastatin 40 mg PO BEDTIME Cholecalciferol (Vitamin D3) [Vitamin D3] 1,000 units PO DAILY HYDROcodone/ACETAMIN 5-325 [[place] 5-325] 1 tablet PO Q6HR PRN #10 PRN Reason: pain Dexamethasone [Dexamethasone Tab] 1 tablet PO Q8HR Albuterol/Ipratropium Neb [Duoneb] 1 inhaler INH Q6HR Discontinued Pantoprazole Tab [Protonix Tab] 40 mg PO AC BREAKFAST levETIRAcetam [Levetiracetam] 1,500 tablet PO DAILY - Follow Up or Referral - Forms/Instructions Exam - Constitutional Vitals: Period Temp Pulse Resp BP Sys/Forrester Pulse Ox Last 24 Hr 96.0 F-98.0 F 72-85 20-24 112-132/76-87 94-97 Exam: GEN: resting comfortably. No jerking on right upper extremity. Awake, alert. trying to speak today. Slow to respond to questions today but she responds appropriately. HEENT: alopecia with bandage in place. dry oral mucosa NECK: Supple no LAD or thyromegaly CV: RRR no M LUNGS: CTAB nonlabored ABD: Soft, NT, ND, +BS EXT: Warm, no c/c/e NEURO: right hemiplegia, sensory exam grossly intact. 3/5 strength of LLE; 4/5 LUE; 1/5 RLE; flaccid RUE Discharge Results Labs on day of discharge: Labs from last 24 hours 11/29/16 07:15 Phenytoin 9.1 L DS: Provider Date of admission: 11/26/16 10:23 Primary care physician: . No PCP Attending physician on admission: Jesi Mason MD Consults: 11/26/16 10:24 Consult to Physician [CONS] Routine Comment: Consulting Provider: Samir Guzman Consult to Physician [CONS] Routine Comment: pt. has glioblastoma Consulting Provider: Filiberto Hall Person Notified: caesar Date Notified: 11/26/16 Time Notified: 12:06 11/27/16 13:25 Consult to Occupational Therapy [CONS] Routine Reason for Occupational Therapy: Evaluate and Treat Consult to Physical Therapy [CONS] Routine Reason for Physical Therapy: Evaluate and Treat Discharging clinician: Anna Mcginnis MD
[2016-11-30] MEDS: CHOLECALCIFEROL 1,000 UNIT TABLET PO SCH (09:44)
[2016-11-30] MEDS: PHENYTOIN 100 MG/4 ML UDCUP PO SCH (09:46)
[2016-11-30] MEDS: DEXAMETHASONE 4 MG TABLET PO SCH (09:46)
[2016-11-30] MEDS: LANSOPRAZOLE ODT 30 MG TABLET PO SCH (09:46)
[2016-11-30] MEDS: DESITIN 4OZ/NYSTATIN 15 GRAM MIXTURE PASTE TOP SCH (09:50)
[2016-11-30] MEDS: levETIRAcetam LIQUID 100 MG/ML 30 ML/BOTTLE PO SCH (09:54)
[2016-11-30 11:12] VITALS: BP 123/83
== END 2016-11-30 11:31 | DRG 100 ==
LOC: EDBD → EDUNIT# → N.ED 08:54 → N.EDINP 10:23 → SUATTDRO 10:23 → N.EDINP 11:22 → N.2E 11:42
PROVIDERS: ADMIT Internal Medicine; ATTEND Pediatrics